=== PATIENT | male | born 1985 ===

== ENCOUNTER 2020-03-22 21:35 | Emergency (ER) | payer SELFPAY ==
[2020-03-22 21:36] VITALS: BP 137/34; PULSE 0; RESP 16; O2SAT 73; BMI 32.1
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
--- NOTE | 2020-03-22 22:40 | PC.NURSE ---
Patient arrived by [facility] and by [employer] crew members. CPR was in progress, patient was intubated and had a total of 3 rounds of EPI and 1 [employer] in route. Patient was placed on our bed and CPR was taken over by ER staff. Dr. Gaitan check for cardiac activity with bedside Ultrasound. Patient had a chest tube placed on Left side by Dr. Gaitan. CPR continued for several rounds. Dr. Gaitan pronnounced patient and TOD was [id number].
== END 2020-03-23 01:41 | disposition expired ==
PROVIDERS: Emergency Provider Emergency Medicine
DX: I46.9 Cardiac arrest, cause unspecified (principal); V89.2XXA Person injured in unspecified motor-vehicle accident, traffic, initial encounter
CPT/HCPCS: 12345; 32551; 99284; C1713; J0171